=== PATIENT | female | born 1995 | race Caucasian/White ===

== ENCOUNTER 2016-10-16 18:35 | Emergency (ER) | payer OTHER ==
[~2016-10-16 18:35] MED LIST: ALBUTEROL17 GM INH; AMOXICILLIN PO; ATIVAN; B NATAL PO; BACITRACIN15 GM TOP; BACTRIM DS TABL1 TA1 PO; BENADRYL IV; BIRTH CONTROL PILL; BROM-PSEUD-DM118 ML PO; BUSPAR PO; CELEXA10 MG; CIPRO PO; CIPRO750 MG; CORTISPORIN-TC10 ML OT; CYMBALTA PO; CYPROHEPTADINE H4 MG PO; DEPAKOTE ER PO; DICLOFENAC PO; DIFLUCAN; DIPHEDRYL25 M2 PO; FLONASE 0.05% N16 G1; HYDROCORTISONE30 G2 EXT; HYDROCORTISONE30 G4 TOP; KLONOPIN PO; LEXAPRO; LEXAPRO PO; LORTAB ELIXIR480 ML PO; MEDROL4 MG/DOSE- PO; MOBIC PO; NAPROSYN500 MG PO; NAPROXEN PO; NASONEX17 GM; NEURONTIN PO; NO MEDICATIONS; PEPCID PO; PHENERGAN PO; PHENERGAN25 M1 PO; PRENATAL VIT PO; PROZAC PO; SUDAFED60 MG PO; TERAZOL VAG; TRAZODONE; TRAZODONE PO; UNISOM25 M2 PO; VOLTAREN75 MG PO; WELLBUTRIN; ZITHROMAX PO; ZOFRAN; ZOFRAN ODT PO; ZOFRAN ODT4 MG DOB; ZYRTEC5 M4 PO; ZYRTEC5 MG PO; [UNRECOGNIZED DRUG - OTHER]
== END 2016-10-16 19:53 | disposition home or self-care (01) ==
LOC: SED 18:35
DX: S61.211A Laceration without foreign body of left index finger without damage to nail, initial encounter (principal); F17.210 Nicotine dependence, cigarettes, uncomplicated; W31.89XA Contact with other specified machinery, initial encounter; Y92.009 Unspecified place in unspecified non-institutional (private) residence as the place of occurrence of the external cause
CPT/HCPCS: 12001; 90715; 99283

== ENCOUNTER 2016-12-04 10:05 | Emergency (ER) | payer OTHER ==
[2016-12-04] MEDS ORDERED: NORTRIPTYLINE PO (10:12)
[2016-12-04] MEDS ORDERED: SINGULAIR PO (10:12)
[2016-12-04] MEDS ORDERED: ZYRTEC PO (10:12)
[2016-12-04] MEDS ORDERED: FLONASE (10:13)
== END 2016-12-04 10:56 | disposition home or self-care (01) ==
LOC: SED 10:05
DX: L02.31 Cutaneous abscess of buttock (principal); F17.200 Nicotine dependence, unspecified, uncomplicated; F32.9 Major depressive disorder, single episode, unspecified; Z98.890 Other specified postprocedural states; Z91.013 Allergy to seafood; Z88.8 Allergy status to other drugs, medicaments and biological substances
CPT/HCPCS: 99283

== ENCOUNTER 2016-12-05 15:31 | Emergency (ER) | payer OTHER ==
[~2016-12-05 15:31] MED LIST changes: +FLONASE; +NORTRIPTYLINE PO; +SINGULAIR PO; +ZYRTEC PO
== END 2016-12-05 17:39 | disposition home or self-care (01) ==
LOC: SED 15:31
DX: L02.31 Cutaneous abscess of buttock (principal); L03.317 Cellulitis of buttock; F17.210 Nicotine dependence, cigarettes, uncomplicated; Z79.899 Other long term (current) drug therapy
CPT/HCPCS: 10060; 99283